=== PATIENT | female | born 2000 | race Caucasian/White ===

== ENCOUNTER 2019-10-23 08:00 | Outpatient (CLI) | payer OTHER, SELFPAY | END 2019-10-23 09:00 | disposition home or self-care (01) | PROVIDERS: Family Provider Pediatrics; Visit Provider Internal Medicine Endocrinology, Diabetes & Metabolism | DX: Z01.89 Encounter for other specified special examinations (principal) | CPT/HCPCS: 36415 ==

== ENCOUNTER 2021-04-18 08:19 | Emergency (ER) | payer OTHER, SELFPAY ==
[2021-04-18 08:30] VITALS: BP 107/67; PULSE 59; RESP 15; TEMP 36.6; O2SAT 99; BMI 19.7
[2021-04-18 08:37] VITALS: RESP 15
[2021-04-18 08:52] VITALS: RESP 15
--- NOTE | 2021-04-18 10:19 | ED_ITS ---
HPI - Animal Bite General: Chief Complaint: Animal Bite Stated Complaint: wasp sting, allergic Time Seen by Provider: 04/18/21 08:36 History of Present Illness: HPI narrative: insect sting left thigh, happened earlier today MD complaint: other Onset (ago): hour(s) Animal: other (unknown, most likely wasp) Mechanism: bite Location - Extremities: Left: thigh Pain description: dull Severity scale (1-10): 1 Context: unprovoked Associated symptoms: Reports no associated symptoms Review of Systems Narrative: Patient has no known history of anaphylactic reaction to wasp stings. She had episode once where she was stung by a wasp in her leg states well for a while. Patient is not having any anaphylactic type symptoms right now. ENMT: Denies: throat pain, uvular edema, odynophagia, hoarseness or swelling of lips/tongue Resp: Denies: dyspnea or wheezing Skin/Breast: Reports: other (Has possible sting to the left thigh lower aspect has some redness around t) [facility] ED Female Reproductive History: Date of last menstrual period: 04/12/21 Physical Exam Const: COMMON NORMALS: no acute distress GENERAL APPEARANCE: cooperative HENMT: COMMON NORMALS: normocephalic and Normal external nose present HEAD & SCALP: normocephalic FACE & SINUS: normal facial exam NOSE: Normal external nose present MOUTH: Normal oral and palatal mucosa present THROAT: posterior oropharynx normal; no uvular edema Resp: COMMON NORMALS: normal respiratory effort and clear to auscultation bilaterally EFFORT & INSPECTION: Yes able to speak in complete sentences, No decreased respiratory effort and No pursed lip breathing AUSCULTATION: clear to auscultation bilaterally and no wheezes Psych: COMMON NORMALS: mental status grossly normal Skin: OTHER: Mild redness around the bite viola lower aspect of the left thigh. No significant swelling. Course Vital Signs: Vital signs: Vital Signs Temperature 97.9 F 04/18/21 08:30 Pulse Rate 59 L 04/18/21 08:30 Respiratory Rate 15 04/18/21 08:52 Blood Pressure 107/67 04/18/21 08:30 Pulse Oximetry 99 04/18/21 08:30 Discharge Plan Discharge Patient Disposition: Home Clinical Impression: Accidental insect sting Condition: Stable Prescriptions: New Medrol (Quintin) 4 mg tablets,dose pack See Rx Instructions .ROUTE .COMPLEX Qty: 21 RF: 0 Discharge Orders: Discharge ED (Routine); Ordered 04/18/21 Ordered By: Yunior Zhou Referrals: Milka Dawson APN [Primary Care Provider] - Discharge Diet: Usual diet Discharge Activity: Increase activity as tolerated Patient Instructions: Insect Bite or Sting (ED) Activity Restrictions/Additional Instructions: Follow-up with medical provider as directed. Take medications as prescribed. Return to the ER or your medical provider if condition worsens. Please read and understand discharge instructions. If any questions ask please. Coding Level of Care Code ED Blending [employer] Hel[employer] for Amelia Mendez
== END 2021-04-18 08:53 | disposition home or self-care (01) ==
PROVIDERS: Emergency Provider Nurse Practitioner Family; PCP Nurse Practitioner Family
DX: S70.362A Insect bite (nonvenomous), left thigh, initial encounter (principal); W57.XXXA Bitten or stung by nonvenomous insect and other nonvenomous arthropods, initial encounter
CPT/HCPCS: 99281

== ENCOUNTER 2021-09-19 06:44 | Outpatient (CLI) | payer OTHER, SELFPAY ==
--- NOTE | 2021-09-19 | US_ITS ---
WS: [id number] ULTRASOUND ABDOMEN CLINICAL INFORMATION: ABD PAIN COMPARISON: None. FINDINGS: Liver Size: Normal. Craniocaudal length: 13.4 cm. Echogenicity: Normal. Surface nodularity: None. Mass (size and location): None. Bile ducts Intrahepatic ducts: Normal. Common bile duct diameter: 0.1 cm. Gallbladder Normal. Gallstones: None. Gallbladder sludge: None. Gallbladder wall thickening: None. Pericholecystic fluid: None. Sonographic Pike sign: Absent. Pancreas Tail not well seen due to bowel Spleen Splenomegaly: None. Craniocaudal length: 9.3 cm. Right kidney: Normal. Hydronephrosis: None. Size: 9.3 cm x 4.5 cm x 4.2 cm Left kidney: Normal. Hydronephrosis: None. Size: 9.4 cm x 4.6 cm x cm. Abdominal aorta and IVC Visualized portions are normal. Ascites: None. US/US abdomen complete* [id number] IMPRESSION: 1. Normal liver. No intrahepatic biliary ductal dilatation. 2. Normal gallbladder. No cholelithiasis. 3. Normal common bile duct. 4. Normal spleen. 5. No ascites. 6. No hydronephrosis in either kidney.
== END 2021-09-19 06:45 | disposition home or self-care (01) ==
PROVIDERS: PCP Nurse Practitioner Family; Visit Provider Nurse Practitioner Family
DX: R10.9 Unspecified abdominal pain (principal)
CPT/HCPCS: 76700